=== PATIENT | female | born 1955 | race Caucasian/White ===

== ENCOUNTER → 2024-01-17 | Outpatient (CLI) | payer MEDICARE, SELFPAY ==
--- NOTE | 2024-01-17 08:00 | XR_ITS ---
Examination: Breast ultrasound, unilateral, left complete Date and time of exam: January 17, 2024 0756 hours INDICATIONS: Left breast sonogram 11/12/2022 2:00 nodule 6 mm Technique: Real-time appiah scale ultrasonographic imaging performed left breast including all 4 quadrants as well as nipple retroareolar and axillary region. Findings: Multiple benign cysts 2:00 oval mass circumscribed 6 x 3 x 5 mm IMPRESSION: BI-RADS Category 2: Benign findings
--- NOTE | 2024-01-17 08:30 | XR_ITS ---
Examination: Diagnostic digital mammography, unilateral, left Computer aided detection 3-D breast Tomosynthesis, unilateral Date and time of exam: January 17, 2024 0814 hours INDICATIONS: Outside mammogram July 04, 2022 12 mm mass 3:00 position left breast Technique: Nonmagnified MLO, CC views of the left breast have been obtained, reconstructed from 3-D Tomosynthesis images. R2 computer aided detection program utilized for evaluation of suspicious masses and/or abnormal calcifications. 3-D Tomosynthesis images obtained. Findings: Scattered areas of fibroglandular density 16 mm mass is confirmed inner left breast 9:00 position Impression: BI-RADS category 0: Incomplete: Need additional imaging evaluation This patient should return for repeat left breast sonography with the radiologist in attendance
== END | disposition home or self-care (01) ==
PROVIDERS: Referring Provider Nurse Practitioner Family; Visit Provider Nurse Practitioner Family
DX: R92.8 Other abnormal and inconclusive findings on diagnostic imaging of breast (principal); N63.21 Unspecified lump in the left breast, upper outer quadrant; N60.02 Solitary cyst of left breast
CPT/HCPCS: 76641; 77061; 77065; G0279